=== PATIENT | female | born 1995 | race Caucasian/White ===

== ENCOUNTER 2021-08-17 04:18 | Inpatient (IN) ==
[2021-08-17] MEDS ORDERED: Naloxone 0.4 MG/ML INJ IVP PRN (04:21)
[2021-08-17] MEDS ORDERED: Azithromycin 500 MG in 0.9 % Sodium Chloride 250 ML IVPB PRN (04:21)
[2021-08-17] MEDS ORDERED: Famotidine 20 MG/2 ML VIAL IVP PRN (04:21)
[2021-08-17] MEDS ORDERED: Lidocaine 1% 20 ML MDV INFILT PRN (04:21)
[2021-08-17] MEDS ORDERED: *HR* Nalbuphine 10 MG/ML AMPUL IV PRN (04:21)
[2021-08-17] MEDS ORDERED: miSOPROStoL 25 MCG TABLET PO PRN (04:21)
[2021-08-17] MEDS ORDERED: Ondansetron 4 MG/2 ML VIAL IVP PRN (04:21)
[2021-08-17] MEDS ORDERED: Metoclopramide 10 MG/2 ML VIAL IVP PRN (04:21)
[2021-08-17 05:03] LABS: Basophils # 0.1 K/mcL (0.0-0.2); Basophils % 0.4 %; Eosinophils # 0.1 K/mcL (0.0-0.6); Eosinophils % 0.8 %; Hematocrit 37.6 % (35.3-44.9); Hemoglobin 11.9 g/dL (11.5-15.4); Immature Granulocytes % 0.5 % (0-4); Lymphocytes # 3.4 K/mcL (0.6-4.6); Lymphocytes % 28.7 %; Mean Corpuscular HGB Conc 31.6 g/dL (31.6-35.5); Mean Corpuscular Hemoglobin 25.5 pg (28.0-33.3); Mean Corpuscular Volume 80.7 fL (83.0-100.0); Mean Platelet Volume 11.2 fL (9.4-12.4); Monocytes # 0.7 K/mcL (0.0-1.3); Monocytes % 5.7 %; Neutrophils # 7.6 K/mcL (1.6-8.9); Platelet Count 277 K/mcL (140-400); Red Blood Count 4.66 M/mcL (3.82-4.97); Red Cell Distribution Width 14.6 % (11.5-14.5); Segmented Neutrophils % 63.9 %; White Blood Count 11.9 K/mcL (4.3-11.1)
[2021-08-17] MEDS ORDERED: EPHEDrine 50 MG/ML VIAL IVP PRN (05:37)
[2021-08-17] MEDS ORDERED: Ropivacaine/PF 0.2% 20 ML VIAL EP ONE (05:37)
[2021-08-17] MEDS ORDERED: *HR* FentaNYL (PF) 100 MCG/2 ML VIAL EP ONE (05:37)
[2021-08-17] MEDS ORDERED: Epidural Premix (fent/bupiv) 110 ML EP SCH (05:45)
[2021-08-17] MEDS: Ringers Solution, Lactated 1,000 ML IVC SCH ×2 (06:06→14:21)
[2021-08-17 06:07] LABS: Influenza A PCR Negative (Negative); Influenza B PCR Negative (Negative); Resp. Syncytial Virus PCR Negative (Negative)
[2021-08-17 06:09] LABS: SARS-CoV-2 by PCR (In House) Negative (Negative)
[2021-08-17 11:41] LABS: Amphetamine Screen,Urine Negative ng/mL (Cutoff=1000); Barbiturate Screen,Urine Negative ng/mL (Cutoff=200); Benzodiazepines Screen,Urine Negative ng/mL (Cutoff=200); Cannabinoid Screen,Urine Negative ng/mL (Cutoff = 50); Cocaine Screen,Urine Negative ng/mL (Cutoff= 300); Opiate Screen,Urine Negative ng/mL (Cutoff=300); Phencyclidine Screen,Urine Negative ng/mL (Cutoff=25)
[2021-08-17] MEDS ORDERED: *HR* FentaNYL (PF) 100 MCG/2 ML VIAL ONE (13:25)
[2021-08-17] MEDS ORDERED: Ropivacaine/PF 0.2% 20 ML VIAL ONE (13:25)
[2021-08-17] MEDS ORDERED: Ringers Solution, Lactated 1,000 ML ONE (13:26)
[2021-08-17] MEDS ORDERED: Oxytocin 20 units/ LR 1000 mL 20 UNIT/1,000 ML BAG IVC SCH ×2 (14:00→18:02)
[2021-08-17] MEDS ORDERED: Benzocaine/Menthol 56 GM AEROSOL SPRAY TP PRN (18:02)
[2021-08-17] MEDS ORDERED: Lanolin 7 G OINT...G. TP PRN (18:02)
[2021-08-17] MEDS ORDERED: Measles/Mumps/Rubella Vacc 0.5 ML VIAL SQ PRN (18:02)
[2021-08-17] MEDS ORDERED: Rho Immune Globulin 1,500 UNIT SYRINGE IM PRN (18:02)
[2021-08-17] MEDS ORDERED: Ondansetron ODT 4 MG TAB.RAPDIS SL PRN (18:02)
[2021-08-17] MEDS: Ibuprofen 600 MG TABLET PO SCH (21:19)
[2021-08-18] MEDS: Ibuprofen 600 MG TABLET PO SCH ×2 (03:22→14:50)
[2021-08-18 04:09] LABS: Basophils % 0.3 %; Eosinophils # 0.1 K/mcL (0.0-0.6); Hematocrit 34.3 % (35.3-44.9); Hemoglobin 10.8 g/dL (11.5-15.4); Immature Granulocytes % 0.5 % (0-4); Lymphocytes # 2.5 K/mcL (0.6-4.6); Lymphocytes % 20.1 %; Mean Corpuscular HGB Conc 31.5 g/dL (31.6-35.5); Mean Corpuscular Hemoglobin 25.8 pg (28.0-33.3); Mean Corpuscular Volume 82.1 fL (83.0-100.0); Mean Platelet Volume 11.1 fL (9.4-12.4); Monocytes # 0.8 K/mcL (0.0-1.3); Monocytes % 6.2 %; Neutrophils # 8.9 K/mcL (1.6-8.9); Platelet Count 231 K/mcL (140-400); Red Blood Count 4.18 M/mcL (3.82-4.97); Red Cell Distribution Width 14.7 % (11.5-14.5); Segmented Neutrophils % 71.9 %; White Blood Count 12.4 K/mcL (4.3-11.1)
[2021-08-18] MEDS ORDERED: Lidocaine 1% 20 ML MDV ID ONE (08:41)
[2021-08-18] MEDS: Acetaminophen 325 MG TABLET PO SCH ×2 (08:41→14:51)
[2021-08-18] MEDS ORDERED: Etonogestrel 68 MG IMPLANT IL ONE (08:41)
[2021-08-18] MEDS ORDERED: Prenatal Vit/FA 1 EACH TABLET PO SCH (09:00)
[2021-08-18 15:37] VITALS: BP 119/78; PULSE 85; TEMP 97.5; O2SAT 97
== END 2021-08-18 18:30 | disposition home or self-care (01) | DRG 560 ==
LOC: 1NENULAB 04:18 → 1NENUOBS 21:00
PROVIDERS: ADMIT Student in an Organized Health Care Education/Training Program; ATTEND Student in an Organized Health Care Education/Training Program